=== PATIENT | female | born 1945 | race Caucasian/White ===

== ENCOUNTER → 2017-04-14 | Outpatient (CLI) | payer MEDICARE, OTHER ==
[~2017-04-14] MED LIST: ACID1TAB7 PO; ALBU18HF INH; DOCU-30 PO; HYDR25SU3 PR; LIDO35.46 TP; PRED20TA PO; TRAM50TA2 PO; VANC125C2 PO
[2017-04-14 10:38] LABS: HEMATOCRIT 43.8 % (34.6-47.8); HEMOGLOBIN 14.4 g/dL (11.7-16.4); WHITE BLOOD COUNT 5.7 x10^3/uL (3.4-10)
[2017-04-14 10:46] LABS: ASPARTATE AMINO TRANSFERASE 17 U/L (15-37); BLOOD UREA NITROGEN 10 mg/dL (7-18)
== END | disposition home or self-care (01) ==
LOC: CFH 08:22
PROVIDERS: ATTEND Family Medicine
DX: M51.36 Other intervertebral disc degeneration, lumbar region (principal); M12.88 Other specific arthropathies, not elsewhere classified, other specified site; I70.0 Atherosclerosis of aorta; M48.06 Spinal stenosis, lumbar region; E55.9 Vitamin D deficiency, unspecified; M79.1 Myalgia; R53.83 Other fatigue; M25.78 Osteophyte, vertebrae
CPT/HCPCS: 36415; 72110; 80053; 82306; 84439; 84443; 84480; 85025; 85651; 86038; 86140; 86430

== ENCOUNTER → 2017-05-11 | Outpatient (CLI) | payer MEDICARE, OTHER ==
[~2017-05-11] MED LIST changes: +DOCU-131 PO; -DOCU-30 PO
== END | disposition home or self-care (01) ==
LOC: CFH 08:53
PROVIDERS: ATTEND Physical Medicine & Rehabilitation
DX: M51.36 Other intervertebral disc degeneration, lumbar region (principal); M51.24 Other intervertebral disc displacement, thoracic region; M48.07 Spinal stenosis, lumbosacral region; M47.894 Other spondylosis, thoracic region; M51.46 Schmorl's nodes, lumbar region; M40.46 Postural lordosis, lumbar region; N28.1 Cyst of kidney, acquired; M25.78 Osteophyte, vertebrae
CPT/HCPCS: 72146; 72148

== ENCOUNTER → 2017-11-24 | Outpatient (CLI) | payer MEDICARE, OTHER ==
[2017-11-24 12:38] LABS: BASOPHILS # (AUTO) 0.03 x10^3/uL (0-0.1); BASOPHILS % (AUTO) 1 % (0-1); EOSINOPHILS # (AUTO) 0.29 x10^3/uL (0-0.4); EOSINOPHILS % (AUTO) 5 % (1-7); LYMPHOCYTES # (AUTO) 2.05 x10^3/uL (1-3.4); LYMPHOCYTES % (AUTO) 33 % (22-44); MD NO; MEAN CORPUSCULAR HEMOGLOBIN 30.2 pg (27.0-34.8); MEAN CORPUSCULAR HGB CONC 32.8 g/dL (32.4-35.8); MEAN PLATELET VOLUME 9.7 fL (7.4-10.4); MONOCYTES # (AUTO) 0.59 x10^3/uL (0.2-0.8); MONOCYTES % (AUTO) 10 % (2-9); NEUTROPHILS # (AUTO) 3.24 x10^3/uL (1.8-6.8); NEUTROPHILS % (AUTO) 52 % (42-75); PLATELET COUNT 227 x10^3/uL (130-400); RED BLOOD COUNT 4.51 x10^6/uL (3.82-5.3); RED CELL DISTRIBUTION WIDTH 15.2 % (9.6-15.2)
[2017-11-24 12:49] LABS: CHLORIDE 106 mmol/L (98-107)
[2017-11-24 12:55] LABS: ALANINE AMINOTRANSFERASE 20 U/L (12-78); ALBUMIN 3.6 g/dL (3.4-5.0); ALKALINE PHOSPHATASE 63 U/L (45-117); ANION GAP 8 mmol/L (5-15); BILIRUBIN,TOTAL 0.2 mg/dL (0.2-1.0); CALCIUM 8.8 mg/dL (8.5-10.1); TOTAL PROTEIN 7.3 g/dL (6.4-8.2)
== END | disposition home or self-care (01) ==
LOC: CFH 08:31
PROVIDERS: ATTEND Psychiatry & Neurology Neurology
DX: M54.5 Low back pain (principal); R53.81 Other malaise; R51 Headache
CPT/HCPCS: 36415; 80053; 85025

== ENCOUNTER 2017-12-28 10:05 | Emergency (ER) | payer MEDICARE, OTHER ==
[~2017-12-28] VITALS: Ht 154.9 cm; Wt 53.6 kg
[2017-12-28] MEDS ORDERED: SODIUM CHLORIDE FLUSH 10ML SYR IVF ONE (11:00)
[2017-12-28 11:01] LABS: BASOPHILS # (AUTO) 0.01 x10^3/uL (0-0.1); BASOPHILS % (AUTO) 0 % (0-1); EOSINOPHILS # (AUTO) 0.05 x10^3/uL (0-0.4); EOSINOPHILS % (AUTO) 1 % (1-7); LYMPHOCYTES # (AUTO) 1.29 x10^3/uL (1-3.4); LYMPHOCYTES % (AUTO) 15 % (22-44); MD NO; MEAN CORPUSCULAR HEMOGLOBIN 30.7 pg (27.0-34.8); MEAN CORPUSCULAR HGB CONC 33.9 g/dL (32.4-35.8); MEAN CORPUSCULAR VOLUME 90.6 fL (80-100); MEAN PLATELET VOLUME 7.9 fL (7.4-10.4); MONOCYTES # (AUTO) 1.02 x10^3/uL (0.2-0.8); MONOCYTES % (AUTO) 12 % (2-9); NEUTROPHILS # (AUTO) 6.07 x10^3/uL (1.8-6.8); NEUTROPHILS % (AUTO) 72 % (42-75); PLATELET COUNT 239 x10^3/uL (130-400); RED CELL DISTRIBUTION WIDTH 13.9 % (9.6-15.2)
[2017-12-28 11:13] LABS: ALANINE AMINOTRANSFERASE 16 U/L (12-78); ALBUMIN 3.3 g/dL (3.4-5.0); ANION GAP 9 mmol/L (5-15); CALCIUM 8.3 mg/dL (8.5-10.1); CHLORIDE 101 mmol/L (98-107)
[2017-12-28 11:17] LABS: ALKALINE PHOSPHATASE 64 U/L (45-117); BILIRUBIN,TOTAL 0.4 mg/dL (0.2-1.0); TOTAL PROTEIN 7.3 g/dL (6.4-8.2); TROPONIN I < 0.015 ng/mL (0.000-0.045)
[2017-12-28 13:18] VITALS: BP 134/43
== END 2017-12-28 13:49 | disposition home or self-care (01) ==
LOC: ED 13:47
DX: B34.9 Viral infection, unspecified (principal); Z87.891 Personal history of nicotine dependence
CPT/HCPCS: 36415; 71045; 80053; 83605; 83880; 84145; 84484; 85025; 87040; 93005; 99285

== ENCOUNTER → 2018-02-23 | Outpatient (CLI) | payer MEDICARE, OTHER | END | disposition home or self-care (01) | LOC: CFH 08:34 | PROVIDERS: ATTEND Psychiatry & Neurology Neurology | DX: J44.9 Chronic obstructive pulmonary disease, unspecified (principal) | CPT/HCPCS: 71046 ==

== ENCOUNTER 2018-04-28 11:43 | Inpatient (IN) | payer MEDICARE, OTHER ==
[~2018-04-28] VITALS: Ht 154.9 cm; Wt 52.0 kg
[2018-04-28] MEDS ORDERED: MORPHINE SULFATE 4 MG/ML, 1ML ONE (11:51)
[2018-04-28] MEDS ORDERED: [UNRECOGNIZED DRUG - OTHER] (11:58)
[2018-04-28] MEDS ORDERED: MORPHINE SULFATE 4 MG/ML, 1ML IVPush PRN ×2 (12:00→16:00)
[2018-04-28] MEDS ORDERED: SODIUM CHLORIDE FLUSH 10ML SYR IVF ONE (12:00)
[2018-04-28] MEDS ORDERED: DULO30CA2 PO (12:00)
[2018-04-28 12:41] LABS: BASOPHILS # (AUTO) 0.02 x10^3/uL (0-0.1); BASOPHILS % (AUTO) 0 % (0-1); EOSINOPHILS # (AUTO) 0.06 x10^3/uL (0-0.4); EOSINOPHILS % (AUTO) 1 % (1-7); LYMPHOCYTES # (AUTO) 1.36 x10^3/uL (1-3.4); LYMPHOCYTES % (AUTO) 16 % (22-44); MD NO; MEAN CORPUSCULAR HEMOGLOBIN 29.8 pg (27.0-34.8); MEAN CORPUSCULAR HGB CONC 33.5 g/dL (32.4-35.8); MEAN PLATELET VOLUME 8.3 fL (7.4-10.4); MONOCYTES # (AUTO) 0.59 x10^3/uL (0.2-0.8); MONOCYTES % (AUTO) 7 % (2-9); NEUTROPHILS # (AUTO) 6.28 x10^3/uL (1.8-6.8); NEUTROPHILS % (AUTO) 76 % (42-75); PLATELET COUNT 214 x10^3/uL (130-400); RED BLOOD COUNT 4.55 x10^6/uL (3.82-5.3); RED CELL DISTRIBUTION WIDTH 16.5 % (9.6-15.2)
[2018-04-28 12:50] LABS: ALBUMIN 3.5 g/dL (3.4-5.0); ANION GAP 2 mmol/L (5-15); CALCIUM 8.7 mg/dL (8.5-10.1); CHLORIDE 105 mmol/L (98-107); CREATININE 0.55 mg/dL (0.55-1.02)
[2018-04-28 12:52] LABS: INTERNATIONAL NORMALIZED RATIO 0.99 (0.93-1.1); PROTHROMBIN TIME 10.3 Seconds (9.6-11.5)
[2018-04-28] MEDS ORDERED: LACTATED RINGERS 1,000 ML IV SCH (13:30)
[2018-04-28] MEDS ORDERED: PROMETHAZINE 25 MG/ML, 1ML IM PRN (13:30)
[2018-04-28] MEDS ORDERED: ONDANSETRON ODT 4 MG PO PRN (13:30)
[2018-04-28] MEDS ORDERED: METOCLOPRAMIDE 5 MG/ML, 2ML IVPush PRN (13:30)
[2018-04-28] MEDS ORDERED: ONDANSETRON 2MG/ML, 2ML IVPush PRN (13:30)
[2018-04-28] MEDS ORDERED: morphine SULFATE 10 MG/ML, 1ML IVPush PRN (13:30)
[2018-04-28] MEDS ORDERED: KETOROLAC 60 MG/2 ML ONE (14:55)
[2018-04-28] MEDS ORDERED: TRANEXAMIC ACID 100 MG/ML, 10ML ONE ×3 (14:55→16:32)
[2018-04-28] MEDS ORDERED: ROPIvacaine/PF 0.5%, 30 ML ONE (14:55)
[2018-04-28] MEDS ORDERED: VANCOMYCIN 1,000 MG ONE (14:56)
[2018-04-28] MEDS ORDERED: EPINEPHRINE 1 MG/ML, 1ML ONE (14:56)
[2018-04-28] MEDS ORDERED: MIDAZOLAM 1 MG/ML, 2ML ONE (15:11)
[2018-04-28] MEDS ORDERED: FENTANYL PF 250 MCG/5ML ONE (15:11)
[2018-04-28] MEDS ORDERED: SUCCINYLCHOLINE 20 MG/ML, 10ML ONE (15:12)
[2018-04-28] MEDS ORDERED: ROCURONIUM 10MG/ML,5ML ONE (15:12)
[2018-04-28] MEDS ORDERED: PROPOFOL 10 MG/ML, 20ML ONE (15:12)
[2018-04-28] MEDS ORDERED: LIDOCAINE GEL 2%, 5ML ONE (15:14)
[2018-04-28] MEDS ORDERED: DEXAMETHASONE 4 MG/ML, 5ML ONE (15:26)
[2018-04-28] MEDS ORDERED: EPHEDRINE 50 MG/ML, 1ML ONE (15:26)
[2018-04-28] MEDS ORDERED: ONDANSETRON 2MG/ML, 2ML ONE (15:26)
[2018-04-28] MEDS ORDERED: CEFAZOLIN 1,000 MG ONE (15:26)
[2018-04-28] MEDS ORDERED: CEFAZOLIN PMX 2GM/50ML 50 ML IVPB SCH (15:30)
[2018-04-28] MEDS ORDERED: ACETAMINOPHEN 325 MG TABLET PO PRN (16:00)
[2018-04-28] MEDS ORDERED: ONDANSETRON ODT 8 MG PO PRN (16:00)
[2018-04-28] MEDS ORDERED: LORazepam 2 MG/ML, 1ML IVPush PRN (16:00)
[2018-04-28] MEDS ORDERED: ONDANSETRON 2MG/ML, 2ML IV PRN (16:00)
[2018-04-28] MEDS ORDERED: EPHEDRINE 50 MG/ML, 1ML IVPush PRN (16:00)
[2018-04-28] MEDS ORDERED: hydrALAzine 20 MG/ML, 1ML IV PRN (16:00)
[2018-04-28] MEDS ORDERED: PROMETHAZINE 25 MG/ML, 1ML IV PRN (16:00)
[2018-04-28] MEDS ORDERED: HYDROmorphone 2 MG/ML, 1ML IV PRN (16:00)
[2018-04-28] MEDS ORDERED: LABETALOL 5MG/ML, 20ML IV PRN (16:00)
[2018-04-28] MEDS ORDERED: MEPERIDINE/PF 25MG/0.5ML IVPush PRN (16:00)
[2018-04-28] MEDS ORDERED: ALBUTEROL SULFATE 2.5 MG/3 ML NPPB PRN (16:00)
[2018-04-28] MEDS ORDERED: MIDAZOLAM 1 MG/ML, 2ML IV PRN (16:00)
[2018-04-28] MEDS ORDERED: OXYcodone 5 MG/5 ML ORAL.SOL UDC PO PRN (16:00)
[2018-04-28] MEDS ORDERED: PROMETHAZINE 12.5 MG SUPP PR PRN (16:00)
[2018-04-28] MEDS ORDERED: FENTANYL PF 100 MCG/2ML ONE (16:53)
[2018-04-28] MEDS ORDERED: OXYcodone 5 MG/5 ML ORAL.SOL UDC ONE (16:53)
[2018-04-28] MEDS: FENTANYL PF 100 MCG/2ML IV PRN ×2 (16:55→17:10)
[2018-04-28 20:56] VITALS: BP 106/52
[2018-04-28] MEDS: OXYcodone IR 5MG TABLET PO PRN (21:44)
[2018-04-29] MEDS: CEFAZOLIN 2,000 MG in SODIUM CHLORIDE 0.9% 50 ML IVPB SCH ×2 (00:06→08:59)
[2018-04-29 00:22] VITALS: BP 106/52
[2018-04-29] MEDS: OXYcodone IR 5MG TABLET PO PRN ×2 (05:01→12:08)
[2018-04-29 05:30] LABS: BASOPHILS % (AUTO) 0 % (0-1); EOSINOPHILS # (AUTO) 0.18 x10^3/uL (0-0.4); EOSINOPHILS % (AUTO) 1 % (1-7); LYMPHOCYTES # (AUTO) 0.85 x10^3/uL (1-3.4); LYMPHOCYTES % (AUTO) 6 % (22-44); MD NO; MEAN CORPUSCULAR HEMOGLOBIN 29.7 pg (27.0-34.8); MEAN CORPUSCULAR HGB CONC 33.5 g/dL (32.4-35.8); MEAN CORPUSCULAR VOLUME 88.6 fL (80-100); MEAN PLATELET VOLUME 8.4 fL (7.4-10.4); MONOCYTES # (AUTO) 0.78 x10^3/uL (0.2-0.8); MONOCYTES % (AUTO) 6 % (2-9); NEUTROPHILS # (AUTO) 11.39 x10^3/uL (1.8-6.8); NEUTROPHILS % (AUTO) 86 % (42-75); PLATELET COUNT 186 x10^3/uL (130-400); RED BLOOD COUNT 3.81 x10^6/uL (3.82-5.3); RED CELL DISTRIBUTION WIDTH 16.4 % (9.6-15.2)
[2018-04-29 05:34] LABS: ALBUMIN 2.9 g/dL (3.4-5.0); ANION GAP 7 mmol/L (5-15); CALCIUM 8.1 mg/dL (8.5-10.1); CHLORIDE 100 mmol/L (98-107)
[2018-04-29 05:39] VITALS: BP 108/54
[2018-04-29 05:39] LABS: ALANINE AMINOTRANSFERASE 22 U/L (12-78); ALKALINE PHOSPHATASE 49 U/L (45-117); BILIRUBIN,TOTAL 0.3 mg/dL (0.2-1.0); CREATININE 0.75 mg/dL (0.55-1.02); TOTAL PROTEIN 5.9 g/dL (6.4-8.2)
[2018-04-29 07:16] VITALS: BP 113/48
[2018-04-29] MEDS: ASPIRIN 81 MG TABLET CHEW PO SCH ×3 (07:58→20:39)
[2018-04-29] MEDS: DULOXETINE 30 MG CAPSULE.DR PO SCH (08:52)
[2018-04-29 14:04] VITALS: BP_SYST 110; BP_SYST 134; BP_SYST 135; BP_DIAS 43; BP_DIAS 52; BP_DIAS 59
[2018-04-29] MEDS: ENOXAPARIN 40 MG/0.4 ML SQ SCH (14:18)
[2018-04-29] MEDS ORDERED: MECLIZINE 12.5 MG TABLET PO PRN (16:00)
[2018-04-29 19:53] VITALS: BP 134/63
[2018-04-30 01:05] VITALS: BP 159/74
[2018-04-30 07:26] VITALS: BP 127/62
[2018-04-30] MEDS: DULOXETINE 30 MG CAPSULE.DR PO SCH (09:19)
[2018-04-30] MEDS: MECLIZINE 12.5 MG TABLET PO SCH ×3 (09:20→21:42)
[2018-04-30] MEDS: ASPIRIN 81 MG TABLET CHEW PO SCH ×2 (09:20→21:42)
[2018-04-30 09:36] LABS: BASOPHILS # (AUTO) 0.01 x10^3/uL (0-0.1); BASOPHILS % (AUTO) 0 % (0-1); EOSINOPHILS # (AUTO) 0.06 x10^3/uL (0-0.4); EOSINOPHILS % (AUTO) 1 % (1-7); LYMPHOCYTES # (AUTO) 0.86 x10^3/uL (1-3.4); LYMPHOCYTES % (AUTO) 7 % (22-44); MD NO; MEAN CORPUSCULAR HEMOGLOBIN 29.2 pg (27.0-34.8); MEAN CORPUSCULAR VOLUME 88.6 fL (80-100); MEAN PLATELET VOLUME 8.2 fL (7.4-10.4); MONOCYTES # (AUTO) 0.92 x10^3/uL (0.2-0.8); MONOCYTES % (AUTO) 7 % (2-9); NEUTROPHILS # (AUTO) 10.48 x10^3/uL (1.8-6.8); NEUTROPHILS % (AUTO) 85 % (42-75); PLATELET COUNT 179 x10^3/uL (130-400); RED BLOOD COUNT 3.86 x10^6/uL (3.82-5.3); RED CELL DISTRIBUTION WIDTH 16.4 % (9.6-15.2)
[2018-04-30 12:56] VITALS: BP 114/48
[2018-04-30] MEDS: ENOXAPARIN 40 MG/0.4 ML SQ SCH (13:20)
[2018-04-30 20:25] VITALS: BP 125/69
[2018-05-01 01:25] VITALS: BP 145/66
[2018-05-01 07:09] VITALS: BP 129/70
[2018-05-01] MEDS: DULOXETINE 30 MG CAPSULE.DR PO SCH (07:51)
[2018-05-01] MEDS: ASPIRIN 81 MG TABLET CHEW PO SCH (07:51)
[2018-05-01] MEDS: MECLIZINE 12.5 MG TABLET PO SCH ×2 (07:52→15:22)
[2018-05-01] MEDS ORDERED: MECL12.52 PO (10:57)
[2018-05-01] MEDS ORDERED: ASPI-515 PO (11:16)
[2018-05-01 12:22] VITALS: BP 110/46
[2018-05-01] MEDS ORDERED: DOCUSATE 100 MG CAPSULE ONE (14:12)
[2018-05-01] MEDS: ENOXAPARIN 40 MG/0.4 ML SQ SCH (14:12)
[2018-05-01 15:01] VITALS: BP 111/56
[2018-05-01] MEDS ORDERED: DOCUSATE 100 MG CAPSULE PO SCH (21:00)
== END 2018-05-01 15:55 | DRG 470 ==
LOC: ED 12:25 → EDIP 12:26 → ED 12:29 → 4NOR 14:09
PROVIDERS: ADMIT Hospitalist; ATTEND Hospitalist
PROC: 0SRS019 Replacement of Left Hip Joint, Femoral Surface with Metal Synthetic Substitute, Cemented, Open Approach (ICD-10-PCS; principal; 2018-04-28 15:30)
DX: S72.002A Fracture of unspecified part of neck of left femur, initial encounter for closed fracture (principal); F17.200 Nicotine dependence, unspecified, uncomplicated; Z88.0 Allergy status to penicillin; Z88.8 Allergy status to other drugs, medicaments and biological substances; S00.03XA Contusion of scalp, initial encounter; W18.39XA Other fall on same level, initial encounter; Y93.89 Activity, other specified; Y92.481 Parking lot as the place of occurrence of the external cause; Y99.8 Other external cause status; G89.29 Other chronic pain; M54.9 Dorsalgia, unspecified; Z79.82 Long term (current) use of aspirin; Z98.82 Breast implant status
CPT/HCPCS: 36415; 70450; 71045; 72170; 80048; 80053; 82040; 83735; 85025; 85610; 85730; 93005; 96374; 99285; G0378; J0171; J0690; J1100; J1650; J1885; J2250; J2405; J2704; J2795; J3010; J3370; C1762; C1776; J0330; J7120

== ENCOUNTER → 2018-09-05 | Outpatient (CLI) | payer MEDICARE, OTHER ==
[~2018-09-05] MED LIST changes: +ASPI-515 PO; +DULO30CA2 PO; +MECL12.52 PO; +[UNRECOGNIZED DRUG - OTHER]
== END | disposition home or self-care (01) ==
LOC: CFH 08:52
PROVIDERS: ATTEND Licensed Practical Nurse
DX: J98.11 Atelectasis (principal); M81.0 Age-related osteoporosis without current pathological fracture; Z87.891 Personal history of nicotine dependence
CPT/HCPCS: 77080; G0297

== ENCOUNTER → 2019-01-08 | Outpatient (CLI) | payer MEDICARE, OTHER ==
[~2019-01-08] MED LIST changes: -VANC125C2 PO; +VANC125C3 PO
== END | disposition home or self-care (01) ==
LOC: CFH 10:49
PROVIDERS: ATTEND Family Medicine
DX: R22.1 Localized swelling, mass and lump, neck (principal)
CPT/HCPCS: 76536

== ENCOUNTER → 2019-02-19 | Outpatient (CLI) | payer MEDICARE, OTHER | END | disposition home or self-care (01) | LOC: CFH 09:28 | PROVIDERS: ATTEND Nurse Practitioner Family | DX: M48.07 Spinal stenosis, lumbosacral region (principal); M51.17 Intervertebral disc disorders with radiculopathy, lumbosacral region; M47.26 Other spondylosis with radiculopathy, lumbar region; R20.0 Anesthesia of skin | CPT/HCPCS: 72148 ==

== ENCOUNTER 2019-06-19 10:03 | Outpatient (CLI) | payer MEDICARE, OTHER | END 2019-06-19 23:59 | disposition home or self-care (01) | LOC: CFH 10:03 | PROVIDERS: ATTEND Psychiatry & Neurology Neurology | DX: I67.82 Cerebral ischemia (principal); R41.3 Other amnesia; R42 Dizziness and giddiness; R51 Headache; R90.82 White matter disease, unspecified | CPT/HCPCS: 70551 ==

== ENCOUNTER → 2020-01-17 | Outpatient (CLI) | payer MEDICARE, OTHER ==
[~2020-01-17] MED LIST changes: -MECL12.52 PO; +MECL12.581 PO; +OMNIPAQUE 350 MG/ML, 150 ML BOTTLE ONE
== END | disposition home or self-care (01) ==
LOC: CFH 12:00
PROVIDERS: ATTEND Family Medicine
DX: N28.1 Cyst of kidney, acquired (principal); K76.0 Fatty (change of) liver, not elsewhere classified; R16.2 Hepatomegaly with splenomegaly, not elsewhere classified; I51.7 Cardiomegaly; K57.30 Diverticulosis of large intestine without perforation or abscess without bleeding; M85.88 Other specified disorders of bone density and structure, other site
CPT/HCPCS: 74178; Q9967

== ENCOUNTER → 2020-02-10 | Outpatient (CLI) | payer MEDICARE, OTHER ==
[~2020-02-10] MED LIST changes: -OMNIPAQUE 350 MG/ML, 150 ML BOTTLE ONE
== END | disposition home or self-care (01) ==
LOC: RAD 11:37
PROVIDERS: ATTEND Nurse Practitioner
DX: R13.19 Other dysphagia (principal); K31.89 Other diseases of stomach and duodenum
CPT/HCPCS: 74220

== ENCOUNTER → 2020-03-05 | Outpatient (CLI) | payer MEDICARE, OTHER | END | disposition home or self-care (01) | LOC: RAD 09:29 | PROVIDERS: ATTEND Nurse Practitioner | DX: T17.928A Food in respiratory tract, part unspecified causing other injury, initial encounter (principal); R13.13 Dysphagia, pharyngeal phase; X58.XXXA Exposure to other specified factors, initial encounter; Y93.89 Activity, other specified; Y92.89 Other specified places as the place of occurrence of the external cause; Y99.8 Other external cause status | CPT/HCPCS: 74230 ==

== ENCOUNTER → 2020-04-08 | Outpatient (CLI) | payer MEDICARE, OTHER ==
[2020-04-08 16:07] LABS: BASOPHILS # (AUTO) 0.03 x10^3/uL (0-0.1); BASOPHILS % (AUTO) 0 % (0-1); EOSINOPHILS # (AUTO) 0.21 x10^3/uL (0-0.4); EOSINOPHILS % (AUTO) 3 % (1-7); LYMPHOCYTES # (AUTO) 1.88 x10^3/uL (1-3.4); LYMPHOCYTES % (AUTO) 30 % (22-44); MD NO; MEAN CORPUSCULAR HEMOGLOBIN 26.3 pg (27.0-34.8); MEAN CORPUSCULAR HGB CONC 31.2 g/dL (32.4-35.8); MEAN CORPUSCULAR VOLUME 84.3 fL (80-100); MEAN PLATELET VOLUME 7.3 fL (7.4-10.4); MONOCYTES # (AUTO) 0.45 x10^3/uL (0.2-0.8); MONOCYTES % (AUTO) 7 % (2-9); NEUTROPHILS # (AUTO) 3.73 x10^3/uL (1.8-6.8); NEUTROPHILS % (AUTO) 59 % (42-75); PLATELET COUNT 197 x10^3/uL (130-400); RED BLOOD COUNT 4.71 x10^6/uL (3.82-5.3); RED CELL DISTRIBUTION WIDTH 19.2 % (9.6-15.2)
[2020-04-08 16:14] LABS: T4 (THYROXINE) 6.1 mcg/dL (4.8-13.9)
[2020-04-08 17:21] LABS: HCT (SEDRATE) 39.7 % (34.6-47.8)
[2020-04-09 14:09] LABS: ANA SCREEN POSITIVE (Negative); ANTI-NUCLEAR ANTIBODY PATTERN HOMOGENOUS
== END | disposition home or self-care (01) ==
LOC: LAB 15:28
PROVIDERS: ATTEND Psychiatry & Neurology Neurology
DX: R53.81 Other malaise (principal); R51 Headache; R13.10 Dysphagia, unspecified
CPT/HCPCS: 36415; 82550; 83519; 84436; 84443; 84480; 84481; 84550; 85025; 85651; 86038; 86039; 86235; 86255; 86430

== ENCOUNTER 2020-06-17 07:04 | Day surgery (SDC) | payer MEDICARE, OTHER ==
[~2020-06-17] VITALS: Ht 152.4 cm; Wt 47.7 kg
[2020-06-17 07:35] VITALS: BP 159/61
[2020-06-17] MEDS ORDERED: DICLOFENAC PO (07:45)
[2020-06-17] MEDS ORDERED: budesonide PO (07:45)
[2020-06-17] MEDS ORDERED: GABA600T7 PO (07:45)
[2020-06-17 07:47] VITALS: BP 159/61
[2020-06-17] MEDS ORDERED: CHLORHEXIDINE 15 ML UDC MM ONE (08:00)
[2020-06-17] MEDS ORDERED: LACTATED RINGERS 1,000 ML IV SCH (08:00)
[2020-06-17] MEDS ORDERED: PROPOFOL 50 ML ONE (09:34)
[2020-06-17] MEDS ORDERED: FENTANYL PF 250 MCG/5ML ONE (09:35)
[2020-06-17] MEDS ORDERED: PROPOFOL 10 MG/ML, 20ML ONE (10:03)
[2020-06-17] MEDS ORDERED: ONDANSETRON 2MG/ML, 2ML ONE (10:03)
[2020-06-17] MEDS ORDERED: ONDANSETRON 2MG/ML, 2ML IVPush PRN (11:00)
[2020-06-17] MEDS ORDERED: hydrALAzine 20 MG/ML, 1ML IV PRN (11:00)
[2020-06-17] MEDS ORDERED: MEPERIDINE/PF 25MG/0.5ML IVPush PRN (11:00)
[2020-06-17] MEDS ORDERED: GEMCITABINE HCL 1,000 MG in SODIUM CHLORIDE 0.9% 23.7 ML IS ONE (11:00)
[2020-06-17] MEDS ORDERED: FENTANYL PF 100 MCG/2ML IV PRN (11:00)
[2020-06-17] MEDS ORDERED: MIDAZOLAM 1 MG/ML, 2ML IV PRN (11:00)
[2020-06-17] MEDS ORDERED: LABETALOL 5MG/ML, 20ML IV PRN (11:00)
[2020-06-17] MEDS ORDERED: OXYcodone 5 MG/5 ML ORAL.SOL UDC PO PRN (11:00)
[2020-06-17] MEDS ORDERED: HYDROmorphone 1 MG/ML, 1ML INJ IVPush PRN (11:00)
[2020-06-17] MEDS ORDERED: PROMETHAZINE 25 MG/ML, 1ML IVPush PRN (11:00)
== END 2020-06-17 13:15 | disposition home or self-care (01) ==
LOC: OUT 07:04
PROVIDERS: ATTEND Urology
DX: D49.4 Neoplasm of unspecified behavior of bladder (principal); Z20.828 Contact with and (suspected) exposure to other viral communicable diseases; C67.9 Malignant neoplasm of bladder, unspecified; R35.0 Frequency of micturition; R39.15 Urgency of urination; R33.9 Retention of urine, unspecified; R39.14 Feeling of incomplete bladder emptying; I10 Essential (primary) hypertension; Z79.82 Long term (current) use of aspirin; Z79.891 Long term (current) use of opiate analgesic; Z79.899 Other long term (current) drug therapy; Z87.891 Personal history of nicotine dependence; Z88.0 Allergy status to penicillin; Z88.8 Allergy status to other drugs, medicaments and biological substances
CPT/HCPCS: 36415; 52235; 87635; 88305; 93005; J2405; J2704; J3010; J7120; J9201